=== PATIENT | male | born 1990 | race Caucasian/White ===

== ENCOUNTER 2017-07-02 15:12 | Emergency (ER) | payer OTHER ==
[2017-07-02 15:33] VITALS: BP 134/53
[2017-07-02 16:17] LABS: eGFR (African) > 60; eGFR (Non-African) > 60
[2017-07-02 16:22] LABS: MEAN CORPUSCULAR HEMOGLOBIN 30.8 pg (28.0-34.0); MEAN CORPUSCULAR VOLUME 87.3 fl (80.0-100.0)
--- NOTE | 2017-07-02 16:48 | ED Physician Documentation ---
Rectal Pain - HISTORIAN Historian: patient - HPI Stated Complaint: Rectal bleeding Chief Complaint: General Adult Additional Information: bright red rectal bleeding normal brown feces minimal pain w/ bm's onset 4 days ago no prev similar Onset: days ago (4) Timing: sudden onset, still present (est up to 2-3 tsp blood one time. usually very very minimal. had prev gastric ulcer bleeding but black bms then) Severity: mild - Associated Symptoms Description of Stools: hard stools (occasionally). denies: dark stools, maroon , black, tarry, constipation Abdominal Pain: none Emesis Description: denies: blood, coffee grounds, blood-streaked, clear Description of Rectal Bleed: bright red blood on paper. denies: bleeding w/o stools, blood mixed w/ stool Other Related Symptoms: denies: nausea, vomiting, back pain - ROS CONST: no problems. denies: recent illness, fever, chills SKIN/LYMPH: denies: leg swelling, rash, swollen glands CVS/RESP: none GI/: denies: problems urinating MS: none NEURO/PSYCH: denies: headache, lost feeling, confusion, anxiety, depression - PAST HX Past History: bleeding disorder (gastric ulcer whioch bled but black bms), other (gastric ulcer). denies: diverticulitis Surgeries/Procedures: none Allergies/Adverse Reactions: Allergies Allergy/AdvReac Type Severity Reaction Status Date / Time No Known Allergies Allergy Verified 07/02/17 15:33 Home Medications: Ambulatory Orders Medication Instructions Recorded NK [NK] 07/02/17 - SOCIAL HX Smoking History: non-smoker Alcohol Use: other (daily monimal) Drug Use: none - FAMILY HX Family History: none - VITAL SIGNS Vital Signs: Vital Signs Temp Pulse Resp BP Pulse Ox 96.5 F L 66 17 134/53 99 07/02/17 15:20 07/02/17 15:20 07/02/17 15:20 07/02/17 15:20 07/02/17 15:20 - REVIEWED ASSESSMENTS Nursing Assessment Reviewed: Yes Vitals Reviewed: Yes ED Results Lab/Radiology - Lab Results Lab Results: Lab Results 07/02/17 07/02/17 16:15 16:15 WBC 8.80 K/ul K/ul (4.00-12.00) RBC 4.84 M/ul M/ul (3.90-5.20) Hgb 14.9 g/dL g/dL (12.0-18.0) Hct 42.3 % % (37.0-53.0) MCV 87.3 fl fl (80.0-100.0) MCH 30.8 pg pg (28.0-34.0) MCHC 35.3 g/dL g/dL (30.0-36.0) RDW 13.2 % % (11.3-14.3) Plt Count 291 K/mm3 K/mm3 (130-400) Sodium 142 mmol/L mmol/L (136-145) Potassium 3.8 mmol/L mmol/L (3.5-5.1) Chloride 102 mmol/L mmol/L (98-107) Carbon Dioxide 31 mmol/L H mmol/L (22-30) BUN 13 mg/dL mg/dL (9-20) Creatinine 1.00 mg/dL mg/dL (0.66-1.25) Estimated Creat Clear 136 Est GFR ( Amer) > 60 (60 - ) Est GFR (Non-Af Amer) > 60 (60 - ) Glucose 81 mg/dL mg/dL (74-106) Calcium 9.5 mg/dL mg/dL (8.4-10.2) Total Bilirubin 0.1 mg/dL L mg/dL (0.2-1.3) AST 29 U/L U/L (15-46) ALT 32 U/L U/L (13-69) Alkaline Phosphatase 64 U/L U/L (38-126) Total Protein 8.1 g/dL g/dL (6.3-8.2) Albumin 4.8 g/dL g/dL (3.5-5.0) - Orders Orders: ED Orders Category Date Time Status Place IV Lock 1T Care 07/02/17 16:13 Active CBC PLATELETS NO DIFF Routine Lab 07/02/17 16:15 Completed CMP Routine Lab 07/02/17 16:15 Completed Rectal Pain Physical Exam - EXAM General Appearance: mild distress EENT: eye inspection normal Neck: nml inspection. No: lymphadenopathy Respiratory: no resp distress, breath sounds normal CVS: reg. rate & rhythm Abdomen: soft, non-tender (sl genl) Rectal: non-tender, stool nml color (per hx - no stool in pouch). No: external hemorrhoid, thrombosed, ruptured, pain on exam Skin: color nml, no rash. No: cyanosis, diaphoresis, pallor, ecchymosis, skin rash Extremities: non-tender, normal range of motion, no edema Neuro/Psych: oriented x3, motor nml, sensation nml, mood/affect nml Discharge Clincal Impression: bright red rectal bleeding, normal colored bms, normal rectal exam-no hemorrhoids palpat Referrals: Primary Doctor,No [Primary Care Provider] - 2 Days Comments: send copies lab w/ pt. pt instructed to get prop H see pcp in 7-10 days if persists-immediately if massive hemorrhage-send copies lab w/pt Condition: Good Disposition: 01 HOME, SELF-CARE Decision to Admit: NO Decision Time: 16:54
== END 2017-07-02 17:00 | disposition home or self-care (01) ==
LOC: ED 15:12
DX: K62.5 Hemorrhage of anus and rectum (principal)
CPT/HCPCS: 80053; 85027; 99283; S1016